=== PATIENT | male | born 1940 | race Two or more races ===

== ENCOUNTER 2022-09-29 20:25 | Inpatient (IN) | payer MEDICARE, BC ==
[~2022-09-29] VITALS: Ht 198.1 cm; Wt 127.3 kg
[2022-09-29 20:46] LABS: BASOPHILS % (AUTO) 0.7 % (0-1); EOSINOPHILS # (AUTO) 0.2 X10'3 (0-0.9); EOSINOPHILS % (AUTO) 3.7 % (0-6); HEMOGLOBIN 14.4 g/dl (14.0-17.9); LYMPHOCYTES # (AUTO) 1.7 X10'3 (1.1-4.8); LYMPHOCYTES % (AUTO) 31.4 % (21-51); MEAN CORPUSCULAR HEMOGLOBIN 31.1 PG (27.0-31.0); MEAN CORPUSCULAR HGB CONC 34.3 g/dL (33.0-36.5); MEAN CORPUSCULAR VOLUME 90.8 FL (78-98); MEAN PLATELET VOLUME 8.9 FL (7.4-10.4); MONOCYTES # (AUTO) 0.6 X10'3 (0-0.9); MONOCYTES % (AUTO) 10.5 % (2-12); NEUTROPHILS % (AUTO) 53.7 % (42-75); PLATELET COUNT 136 X10'3 (140-440); RED BLOOD COUNT 4.63 X10'6 (4.70-6.10); RED CELL DISTRIBUTION WIDTH 14.6 % (11.5-14.5); WHITE BLOOD COUNT 5.5 X10'3 (4.5-11.0)
[2022-09-29] MEDS ORDERED: temazepam 15mg capsule PO PRN (21:00)
[2022-09-29 21:07] LABS: ALANINE AMINOTRANSFERASE 26 U/L (12-78); ALBUMIN 3.8 G/DL (3.4-5.0); ALBUMIN/GLOBULIN RATIO 1.4 (1.1-1.5); ALKALINE PHOSPHATASE 107 IU/L (46-116); ANION GAP 10 (8-16); ASPARTATE AMINO TRANSFERASE 27 U/L (10-37); BILIRUBIN,TOTAL 0.5 MG/DL (0.1-1.0); BLOOD UREA NITROGEN 18 MG/DL (7-18); BUN/CREATININE RATIO 15.9 (10.0-20.0); CALCIUM 8.9 MG/DL (8.5-10.1); CHLORIDE 105 MMOL/L (99-107); CREATININE 1.13 MG/DL (0.60-1.10); GLUCOSE 113 MG/DL (70-104); MAGNESIUM 1.9 MG/DL (1.5-2.4); POTASSIUM 3.9 MMOL/L (3.5-5.1); SODIUM 141 MMOL/L (135-145); TOTAL CARBON DIOXIDE 26.5 MMOL/L (24-32); TOTAL PROTEIN 6.6 G/DL (6.4-8.2); eGFR 62 ML/MIN
[2022-09-29] MEDS ORDERED: furosemide 10 MG/1 ML 10ml inj IV ONE (22:00)
[2022-09-29] MEDS ORDERED: HYDROcodone/acetaminophen 5mg/325mg tablet PO PRN (22:40)
[2022-09-29] MEDS ORDERED: diphenhydrAMINE 25mg capsule PO PRN (22:40)
[2022-09-29] MEDS ORDERED: ondansetron 4mg rapidly disintigrating tab PO PRN (22:40)
[2022-09-29] MEDS ORDERED: acetaminophen 325mg tablet PO PRN ×2 (22:40)
[2022-09-29] MEDS ORDERED: diphenhydrAMINE 50 mg/ml inj IV PRN (22:40)
[2022-09-29] MEDS ORDERED: morphine 2 MG/ML inj. syringe IV PRN ×2 (22:40)
[2022-09-29] MEDS ORDERED: ondansetron/PF 4mg/2ml inj IV PRN (22:40)
[2022-09-29] MEDS ORDERED: HYDROcodone/acetaminophen 10/325mg tab PO PRN (22:40)
[2022-09-29] MEDS ORDERED: bisacodyl 10mg suppository rectal RC PRN (22:40)
[2022-09-29] MEDS ORDERED: normal saline 1000ml 1,000 ML IV SCH (22:40)
[2022-09-29] MEDS ORDERED: acetaminophen 650mg rectal suppository RC PRN (22:40)
[2022-09-29] MEDS ORDERED: magnesium hydroxide 30ml (MOM) UD suspension PO PRN (22:40)
[2022-09-29] MEDS ORDERED: mag hydrox/Alum hydrox/simeth 30ml oral suspension PO PRN (22:40)
[2022-09-29] MEDS ORDERED: FURO40TA4 PO (23:19)
[2022-09-29] MEDS ORDERED: DABI150C PO (23:19)
[2022-09-29] MEDS ORDERED: METO-384 PO (23:19)
[2022-09-29] MEDS ORDERED: LOSA25TA96 PO (23:19)
[2022-09-29 23:25] LABS: HEMOGLOBIN A1C 5.7 % (4.5-6.2)
[2022-09-29 23:29] LABS: CREATINE KINASE 227 U/L (39-308); LIPASE 57 U/L (73-393)
[2022-09-29 23:29] LABS: PHOSPHORUS 3.1 MG/DL (2.3-4.5)
[2022-09-29 23:32] LABS: APTT 30 SECONDS (22-32)
--- NOTE | 2022-09-29 23:55 | NUR ---
Pt placed on hospital bed for comfort.
[2022-09-30 03:48] LABS: BASOPHILS # (AUTO) 0.1 X10'3 (0-0.2); BASOPHILS % (AUTO) 0.9 % (0-1); EOSINOPHILS # (AUTO) 0.2 X10'3 (0-0.9); EOSINOPHILS % (AUTO) 3.2 % (0-6); HEMATOCRIT 40.4 % (42.0-52.0); HEMOGLOBIN 13.7 g/dl (14.0-17.9); LYMPHOCYTES # (AUTO) 1.3 X10'3 (1.1-4.8); LYMPHOCYTES % (AUTO) 23.5 % (21-51); MEAN CORPUSCULAR HEMOGLOBIN 30.9 PG (27.0-31.0); MEAN CORPUSCULAR VOLUME 90.8 FL (78-98); MEAN PLATELET VOLUME 8.8 FL (7.4-10.4); MONOCYTES # (AUTO) 0.6 X10'3 (0-0.9); MONOCYTES % (AUTO) 10.9 % (2-12); NEUTROPHILS # (AUTO) 3.4 X10'3 (1.8-7.7); NEUTROPHILS % (AUTO) 61.5 % (42-75); PLATELET COUNT 128 X10'3 (140-440); RED BLOOD COUNT 4.45 X10'6 (4.70-6.10); RED CELL DISTRIBUTION WIDTH 14.1 % (11.5-14.5); WHITE BLOOD COUNT 5.6 X10'3 (4.5-11.0)
[2022-09-30 04:00] LABS: ALANINE AMINOTRANSFERASE 21 U/L (12-78); ALBUMIN 3.5 G/DL (3.4-5.0); ALBUMIN/GLOBULIN RATIO 1.3 (1.1-1.5); ALKALINE PHOSPHATASE 77 IU/L (46-116); ANION GAP 8 (8-16); ASPARTATE AMINO TRANSFERASE 22 U/L (10-37); BILIRUBIN,TOTAL 0.6 MG/DL (0.1-1.0); BLOOD UREA NITROGEN 15 MG/DL (7-18); BUN/CREATININE RATIO 13.6 (10.0-20.0); CALCIUM 8.7 MG/DL (8.5-10.1); CHLORIDE 106 MMOL/L (99-107); CHOL/HDL RATIO 2.6 (0.00-4.99); CHOLESTEROL 184 MG/DL (0-200); GLUCOSE 118 MG/DL (70-104); HDL CHOLESTEROL 70 MG/DL (35-60); LDL CHOLESTEROL 102 MG/DL (50-100); POTASSIUM 3.7 MMOL/L (3.5-5.1); SODIUM 143 MMOL/L (135-145); TOTAL CARBON DIOXIDE 28.8 MMOL/L (24-32); TOTAL PROTEIN 6.1 G/DL (6.4-8.2); TRIGLYCERIDES 43 MG/DL (20-135); eGFR 64 ML/MIN
--- NOTE | 2022-09-30 07:21 | NUR ---
report given to Kirsten MIDDLETON
[2022-09-30] MEDS ORDERED: heparin, porcine 5000 units/ml vial SQ SCH (08:00)
[2022-09-30 08:30] VITALS: BP 123/85
[2022-09-30] MEDS: furosemide 10 MG/1 ML 10ml inj IV SCH (08:41)
[2022-09-30] MEDS: docusate sod 100mg capsule PO SCH ×2 (08:42→20:00)
[2022-09-30] MEDS: pantoprazole 40mg Tablet.DR PO SCH (08:42)
[2022-09-30] MEDS: metoprolol succinate 25mg (24-HOUR) SR. Tablet PO SCH (08:42)
[2022-09-30] MEDS: losartan 25mg tablet PO SCH (08:43)
[2022-09-30] MEDS: dabigatran 150mg capsule PO SCH ×2 (10:37→19:58)
[2022-09-30] MEDS: nitroGLYCERIN 0.1mg/hour patch TD SCH (10:38)
[2022-09-30 11:00] VITALS: BP 98/62
[2022-09-30 12:25] VITALS: BP 113/72
[2022-09-30 18:22] VITALS: BP 112/70
[2022-09-30 23:57] VITALS: BP 105/66
[2022-10-01 06:00] VITALS: BP 105/68
[2022-10-01 06:27] LABS: ALANINE AMINOTRANSFERASE 17 U/L (12-78); ALBUMIN 3.1 G/DL (3.4-5.0); ALBUMIN/GLOBULIN RATIO 1.3 (1.1-1.5); ALKALINE PHOSPHATASE 68 IU/L (46-116); ANION GAP 8 (8-16); ASPARTATE AMINO TRANSFERASE 18 U/L (10-37); BILIRUBIN,TOTAL 0.7 MG/DL (0.1-1.0); BLOOD UREA NITROGEN 18 MG/DL (7-18); CALCIUM 8.5 MG/DL (8.5-10.1); CHLORIDE 106 MMOL/L (99-107); GLUCOSE 104 MG/DL (70-104); POTASSIUM 3.6 MMOL/L (3.5-5.1); SODIUM 143 MMOL/L (135-145); TOTAL CARBON DIOXIDE 29.1 MMOL/L (24-32); TOTAL PROTEIN 5.5 G/DL (6.4-8.2); eGFR 72 ML/MIN
[2022-10-01 06:31] LABS: BASOPHILS % (AUTO) 0.8 % (0-1); EOSINOPHILS # (AUTO) 0.2 X10'3 (0-0.9); EOSINOPHILS % (AUTO) 4.5 % (0-6); HEMATOCRIT 38.8 % (42.0-52.0); HEMOGLOBIN 13.4 g/dl (14.0-17.9); LYMPHOCYTES # (AUTO) 1.3 X10'3 (1.1-4.8); LYMPHOCYTES % (AUTO) 34.5 % (21-51); MEAN CORPUSCULAR HEMOGLOBIN 31.5 PG (27.0-31.0); MEAN CORPUSCULAR HGB CONC 34.4 g/dL (33.0-36.5); MEAN CORPUSCULAR VOLUME 91.7 FL (78-98); MEAN PLATELET VOLUME 9.3 FL (7.4-10.4); MONOCYTES # (AUTO) 0.5 X10'3 (0-0.9); MONOCYTES % (AUTO) 11.9 % (2-12); NEUTROPHILS # (AUTO) 1.8 X10'3 (1.8-7.7); NEUTROPHILS % (AUTO) 48.3 % (42-75); PLATELET COUNT 114 X10'3 (140-440); RED BLOOD COUNT 4.23 X10'6 (4.70-6.10); RED CELL DISTRIBUTION WIDTH 14.6 % (11.5-14.5); WHITE BLOOD COUNT 3.8 X10'3 (4.5-11.0)
--- NOTE | 2022-10-01 06:32 | NUR ---
Problems reprioritized. Patient report given, questions answered & plan of care reviewed with Jana MIDDLETON.
[2022-10-01] MEDS: nitroGLYCERIN 0.1mg/hour patch TD SCH (08:00)
[2022-10-01] MEDS: furosemide 10 MG/1 ML 10ml inj IV SCH (08:24)
[2022-10-01] MEDS: pantoprazole 40mg Tablet.DR PO SCH (08:24)
[2022-10-01] MEDS: dabigatran 150mg capsule PO SCH (08:24)
[2022-10-01] MEDS: losartan 25mg tablet PO SCH (08:24)
[2022-10-01] MEDS: metoprolol succinate 25mg (24-HOUR) SR. Tablet PO SCH (08:25)
[2022-10-01] MEDS: docusate sod 100mg capsule PO SCH (08:25)
--- NOTE | 2022-10-01 10:52 | NUR ---
Dr. Gee at bedside.
[2022-10-01] MEDS ORDERED: LOSA50TA64 PO (10:56)
[2022-10-01] MEDS ORDERED: losartan 25mg tablet PO SCH (10:57)
[2022-10-01] MEDS ORDERED: DABI150C PO (10:59)
[2022-10-01] MEDS ORDERED: FURO40TA4 PO ×2 (10:59→11:01)
[2022-10-01] MEDS ORDERED: METO-384 PO (10:59)
[2022-10-01 11:00] VITALS: BP 91/51
--- NOTE | 2022-10-01 12:45 | NUR ---
Discharge instructions given to pt and family. all medications, diet, md appointments, etc were discussed. All questions answered. Pt and family state they understand all instructions. Pt leaving unit via wheelchair.
[2022-10-01] MEDS ORDERED: losartan 50mg tablet PO SCH (20:00)
[2022-10-01] MEDS ORDERED: dabigatran 150mg capsule PO SCH (20:00)
[2022-10-02] MEDS ORDERED: furosemide 40mg tablet PO SCH (08:00)
[2022-10-02] MEDS ORDERED: non-formulary drug (Metoprolol Succinate 1 TAB) PO SCH (08:00)
== END 2022-10-01 12:45 | disposition home or self-care (01) | DRG 291 ==
LOC: ER 20:26 → ED HOLD 22:52 → UNDOADMIN 09-30 01:24 → ED HOLD 09-30 01:24 → SUR 3N 09-30 08:28 → ED HOLD 09-30 08:28 → UNDODISIN 10-01 12:45
PROVIDERS: ADMIT Family Medicine; ATTEND Internal Medicine
DX: I13.0 Hypertensive heart and chronic kidney disease with heart failure and stage 1 through stage 4 chronic kidney disease, or unspecified chronic kidney disease (principal); I50.33 Acute on chronic diastolic (congestive) heart failure; N17.9 Acute kidney failure, unspecified; D69.6 Thrombocytopenia, unspecified; I48.91 Unspecified atrial fibrillation; N18.9 Chronic kidney disease, unspecified; Z79.01 Long term (current) use of anticoagulants; Z79.899 Other long term (current) drug therapy
CPT/HCPCS: 36415; 71045; 80053; 80061; 82550; 83036; 83690; 83735; 83880; 84100; 84443; 84484; 85025; 85379; 85610; 85730; 87081; 93005; 93306; 96374; 97116; 97161; 97530; 99285; G0378; J1940

== ENCOUNTER 2024-03-24 14:50 | Emergency (ER) | payer MEDICARE, BC ==
[~2024-03-24] VITALS: Ht 198.1 cm; Wt 121.5 kg
[~2024-03-24 14:50] MED LIST: DABI150C PO; FURO40TA4 PO; LOSA50TA64 PO; METO-384 PO
[2024-03-24 15:28] LABS: EOSINOPHILS # (AUTO) 0.4 X10'3 (0-0.9); EOSINOPHILS % (AUTO) 8.3 % (0-6); HEMATOCRIT 40.4 % (42.0-52.0); HEMOGLOBIN 13.3 g/dl (14.0-17.9); LYMPHOCYTES # (AUTO) 1.2 X10'3 (1.1-4.8); LYMPHOCYTES % (AUTO) 27.2 % (21-51); MEAN CORPUSCULAR HEMOGLOBIN 30.8 PG (27.0-31.0); MEAN CORPUSCULAR HGB CONC 32.9 g/dL (33.0-36.5); MEAN CORPUSCULAR VOLUME 93.6 FL (78-98); MEAN PLATELET VOLUME 8.3 FL (7.4-10.4); MONOCYTES # (AUTO) 0.4 X10'3 (0-0.9); MONOCYTES % (AUTO) 8.9 % (2-12); NEUTROPHILS # (AUTO) 2.5 X10'3 (1.8-7.7); NEUTROPHILS % (AUTO) 54.6 % (42-75); PLATELET COUNT 151 X10'3 (140-440); RED BLOOD COUNT 4.32 X10'6 (4.70-6.10); RED CELL DISTRIBUTION WIDTH 15.2 % (11.5-14.5); WHITE BLOOD COUNT 4.5 X10'3 (4.5-11.0)
[2024-03-24 15:47] LABS: ALANINE AMINOTRANSFERASE 21 U/L (12-78); ALBUMIN 3.6 G/DL (3.4-5.0); ALBUMIN/GLOBULIN RATIO 1.3 (1.1-1.5); ALKALINE PHOSPHATASE 73 IU/L (46-116); ANION GAP 6 (8-16); ASPARTATE AMINO TRANSFERASE 19 U/L (10-37); BILIRUBIN,TOTAL 0.5 MG/DL (0.1-1.0); BLOOD UREA NITROGEN 29 MG/DL (7-18); BUN/CREATININE RATIO 27.6 (10.0-20.0); CALCIUM 8.7 MG/DL (8.5-10.1); CHLORIDE 107 MMOL/L (99-107); CREATININE 1.05 MG/DL (0.60-1.10); GLUCOSE 91 MG/DL (70-104); SODIUM 142 MMOL/L (135-145); TOTAL CARBON DIOXIDE 29.5 MMOL/L (24-32); TOTAL PROTEIN 6.3 G/DL (6.4-8.2); eCRCL 71 ML/MIN; eGFR 68 ML/MIN
[2024-03-24 15:55] LABS: PRO BRAIN NATRIURETIC PEPTIDE 1898 PG/ML (0-450)
[2024-03-24 16:00] VITALS: BP 148/79; PULSE 70; RESP 14; O2SAT 94
[2024-03-24 16:32] VITALS: TEMP 98
== END 2024-03-24 17:09 | disposition home or self-care (01) ==
LOC: ER 14:51
DX: R79.89 Other specified abnormal findings of blood chemistry (principal); R53.1 Weakness; R19.7 Diarrhea, unspecified; Z79.899 Other long term (current) drug therapy
CPT/HCPCS: 36415; 71045; 80053; 83880; 84484; 85025; 93005; 99285

== ENCOUNTER 2024-07-21 15:39 | Inpatient (IN) | payer MEDICARE, BC ==
[~2024-07-21] VITALS: Ht 198.1 cm; Wt 114.5 kg
[2024-07-21] MEDS: acetaminophen 325mg tablet PO ONE (16:53)
[2024-07-21 17:17] LABS: BASOPHILS % (AUTO) 0.3 % (0-1); EOSINOPHILS % (AUTO) 0 % (0-6); HEMATOCRIT 39.3 % (42.0-52.0); HEMOGLOBIN 13.3 g/dl (14.0-17.9); LYMPHOCYTES # (AUTO) 0.5 X10'3 (1.1-4.8); LYMPHOCYTES % (AUTO) 5.9 % (21-51); MEAN CORPUSCULAR HEMOGLOBIN 31.3 PG (27.0-31.0); MEAN CORPUSCULAR HGB CONC 33.7 g/dL (33.0-36.5); MEAN CORPUSCULAR VOLUME 92.9 FL (78-98); MEAN PLATELET VOLUME 8.6 FL (7.4-10.4); MONOCYTES # (AUTO) 0.7 X10'3 (0-0.9); MONOCYTES % (AUTO) 8.2 % (2-12); NEUTROPHILS # (AUTO) 6.9 X10'3 (1.8-7.7); NEUTROPHILS % (AUTO) 85.6 % (42-75); PLATELET COUNT 122 X10'3 (140-440); RED BLOOD COUNT 4.24 X10'6 (4.70-6.10); RED CELL DISTRIBUTION WIDTH 13.5 % (11.5-14.5); WHITE BLOOD COUNT 8.1 X10'3 (4.5-11.0)
[2024-07-21] MEDS ORDERED: DABI150C PO (17:23)
[2024-07-21 17:26] LABS: BILIRUBIN,URINE NEGATIVE (Neg); CLARITY,URINE CLEAR (Clear); COLOR,URINE YELLOW (Yellow); GLUCOSE, URINE NEGATIVE (Neg); KETONES,URINE NEGATIVE (Neg); LEUKOCYTE ESTERASE ,URINE NEGATIVE (Neg); NITRITES, URINE NEGATIVE (Neg); OCCULT BLOOD,URINE MODERATE (Neg); PH,URINE 5.5 (4.8-8.0); PROTEIN,URINE TRACE mg/dl (Neg); UROBILINOGEN,URINE 0.2 E.U/dL (0.2-1.0)
[2024-07-21 17:28] LABS: UA COLLECTION TYPE VOIDED
[2024-07-21 17:34] LABS: BACTERIA,URINE FEW /HPF (Neg); RBC,URINE 0-2 /HPF (0-2); SQUAMOUS EPITHELIAL CELL,UR NONE SEEN /LPF (FEW); WBC,URINE 0-4 /HPF (0-4)
[2024-07-21 17:44] LABS: ALANINE AMINOTRANSFERASE 26 U/L (12-78); ALBUMIN 3.3 G/DL (3.4-5.0); ALBUMIN/GLOBULIN RATIO 1.1 (1.1-1.5); ANION GAP 7 (8-16); ASPARTATE AMINO TRANSFERASE 32 U/L (10-37); BILIRUBIN,TOTAL 1.1 MG/DL (0.1-1.0); BLOOD UREA NITROGEN 22 MG/DL (7-18); BUN/CREATININE RATIO 18.2 (10.0-20.0); CALCIUM 8.4 MG/DL (8.5-10.1); CHLORIDE 100 MMOL/L (99-107); CREATININE 1.21 MG/DL (0.60-1.10); POTASSIUM 3.4 MMOL/L (3.5-5.1); SODIUM 135 MMOL/L (135-145); TOTAL CARBON DIOXIDE 27.6 MMOL/L (24-32); TOTAL PROTEIN 6.4 G/DL (6.4-8.2); eCRCL 61 ML/MIN; eGFR 57 ML/MIN
[2024-07-21 17:48] LABS: ALKALINE PHOSPHATASE 66 IU/L (46-116); GLUCOSE 135 MG/DL (70-104)
[2024-07-21] MEDS ORDERED: VANCOMYCIN 1GM 200ML H20 (PEG) 200 ML IV ONE (19:15)
[2024-07-21] MEDS: CefTRIAXone/D5W-Rocephin 1gm 50 ML IV ONE (19:56)
[2024-07-21] MEDS: vancomycin/NS 1 GM ADD-VANTAGE 250 ML IV ONE (19:56)
[2024-07-21] MEDS: normal saline 1000ml 1,000 ML IV ONE (19:56)
[2024-07-21] MEDS ORDERED: potassium Cl 40MEQ/1/2NS 520ml 520 ML IV PRN (20:50)
[2024-07-21] MEDS ORDERED: magnesium sulf-water 2g/50mL 50 ML IV PRN (20:50)
[2024-07-21] MEDS ORDERED: magnesium sulf-water 4G/100mL 100 ML IV PRN (20:50)
[2024-07-21] MEDS ORDERED: magnesium Cl slow-release 64mg tablet PO PRN (20:50)
[2024-07-21] MEDS ORDERED: potassium Cl 20 mEq SR tablet PO PRN (20:50)
[2024-07-21] MEDS ORDERED: ondansetron/PF 4mg/2ml inj IV PRN (20:50)
[2024-07-21] MEDS ORDERED: morphine 2 MG/ML inj. syringe IV PRN (20:50)
[2024-07-21] MEDS ORDERED: mag hydrox/Alum hydrox/simeth 30ml oral suspension PO PRN (20:50)
[2024-07-21] MEDS ORDERED: magnesium hydroxide 30ml (MOM) UD suspension PO PRN (20:50)
[2024-07-21 21:36] LABS: BILIRUBIN,URINE NEGATIVE (Neg); CLARITY,URINE CLEAR (Clear); COLOR,URINE YELLOW (Yellow); GLUCOSE, URINE NEGATIVE (Neg); KETONES,URINE NEGATIVE (Neg); LEUKOCYTE ESTERASE ,URINE NEGATIVE (Neg); NITRITES, URINE NEGATIVE (Neg); OCCULT BLOOD,URINE MODERATE (Neg); PROTEIN,URINE NEGATIVE (Neg); UROBILINOGEN,URINE 0.2 E.U/dL (0.2-1.0)
[2024-07-21 21:47] LABS: UA COLLECTION TYPE CLN CATCH MIDSTREAM
[2024-07-21 21:48] LABS: BACTERIA,URINE FEW /HPF (Neg); RBC,URINE 0-2 /HPF (0-2); SQUAMOUS EPITHELIAL CELL,UR FEW /LPF (FEW); WBC,URINE 0-4 /HPF (0-4)
[2024-07-21] MEDS: potassium Cl 20 mEq SR tablet PO PRN (21:56)
[2024-07-21 22:08] LABS: PRO BRAIN NATRIURETIC PEPTIDE 2292 PG/ML (0-450)
[2024-07-21 22:45] VITALS: BP 121/70; PULSE 106; RESP 18; TEMP 100.2; O2SAT 96
[2024-07-21 23:10] VITALS: RESP 18; O2SAT 96
[2024-07-22] VITALS (10 sets, daily range): BP systolic 99–138; BP diastolic 50–113; PULSE 94–114; RESP 14–19; TEMP 97.1–101.1; O2SAT 95–99
[2024-07-22] MEDS: normal saline 1000ml 1,000 ML IV SCH (04:17)
[2024-07-22] MEDS: furosemide 10 MG/1 ML 10ml inj IV SCH (04:21)
[2024-07-22 06:58] LABS: BASOPHILS % (AUTO) 0.2 % (0-1); EOSINOPHILS % (AUTO) 0 % (0-6); HEMOGLOBIN 11.9 g/dl (14.0-17.9); LYMPHOCYTES % (AUTO) 13.2 % (21-51); MEAN CORPUSCULAR HEMOGLOBIN 32.1 PG (27.0-31.0); MEAN CORPUSCULAR HGB CONC 34.9 g/dL (33.0-36.5); MEAN CORPUSCULAR VOLUME 91.9 FL (78-98); MEAN PLATELET VOLUME 8.9 FL (7.4-10.4); MONOCYTES % (AUTO) 13.1 % (2-12); NEUTROPHILS # (AUTO) 5.8 X10'3 (1.8-7.7); NEUTROPHILS % (AUTO) 73.5 % (42-75); PLATELET COUNT 108 X10'3 (140-440); RED CELL DISTRIBUTION WIDTH 13.6 % (11.5-14.5); WHITE BLOOD COUNT 7.9 X10'3 (4.5-11.0)
[2024-07-22 07:51] LABS: OSMOLALITY 282 MOSM/K (280-300)
[2024-07-22 07:52] LABS: ALANINE AMINOTRANSFERASE 22 U/L (12-78); ALBUMIN 2.7 G/DL (3.4-5.0); ALBUMIN/GLOBULIN RATIO 0.9 (1.1-1.5); ALKALINE PHOSPHATASE 57 IU/L (46-116); ANION GAP 9 (8-16); ASPARTATE AMINO TRANSFERASE 36 U/L (10-37); BILIRUBIN,TOTAL 1.3 MG/DL (0.1-1.0); BLOOD UREA NITROGEN 19 MG/DL (7-18); BUN/CREATININE RATIO 16.4 (10.0-20.0); CALCIUM 7.6 MG/DL (8.5-10.1); CHLORIDE 101 MMOL/L (99-107); CHOL/HDL RATIO 2.1 (0.00-4.99); CHOLESTEROL 115 MG/DL (0-200); CREATININE 1.16 MG/DL (0.60-1.10); GLUCOSE 119 MG/DL (70-104); HDL CHOLESTEROL 55 MG/DL (35-60); LDL CHOLESTEROL 56 MG/DL (50-100); MAGNESIUM 1.6 MG/DL (1.5-2.4); POTASSIUM 3.6 MMOL/L (3.5-5.1); SODIUM 135 MMOL/L (135-145); TOTAL CARBON DIOXIDE 24.8 MMOL/L (24-32); TOTAL PROTEIN 5.6 G/DL (6.4-8.2); TRIGLYCERIDES 43 MG/DL (20-135); eCRCL 80 ML/MIN; eGFR 60 ML/MIN
[2024-07-22] MEDS: K and/or MAG REPLACEMENT MC SCH (08:00)
[2024-07-22] MEDS: metoprolol succinate 25mg (24-HOUR) SR. Tablet PO SCH (09:50)
[2024-07-22] MEDS: furosemide 40mg/4ml inj IV SCH (09:50)
[2024-07-22] MEDS: acetaminophen 325mg tablet PO PRN (09:50)
[2024-07-22] MEDS: docusate sod 100mg capsule PO SCH (09:51)
[2024-07-22] MEDS: piperacillin/tazo 4.5gm/100ml 100 ML IV SCH (09:51)
[2024-07-22] MEDS: dabigatran 150mg capsule PO SCH (09:51)
[2024-07-22] MEDS: losartan 50mg tablet PO SCH (09:51)
[2024-07-23] VITALS (7 sets, daily range): BP systolic 94–131; BP diastolic 46–75; PULSE 84–116; RESP 10–23; TEMP 97.3–99.2; O2SAT 91–97
[2024-07-23 06:42] LABS: BASOPHILS % (AUTO) 0.1 % (0-1); EOSINOPHILS % (AUTO) 0.2 % (0-6); HEMOGLOBIN 10.8 g/dl (14.0-17.9); LYMPHOCYTES % (AUTO) 13.1 % (21-51); MEAN CORPUSCULAR HEMOGLOBIN 31.9 PG (27.0-31.0); MEAN CORPUSCULAR HGB CONC 34.8 g/dL (33.0-36.5); MEAN CORPUSCULAR VOLUME 91.7 FL (78-98); MEAN PLATELET VOLUME 8.9 FL (7.4-10.4); MONOCYTES # (AUTO) 0.9 X10'3 (0-0.9); MONOCYTES % (AUTO) 11.6 % (2-12); NEUTROPHILS # (AUTO) 5.8 X10'3 (1.8-7.7); PLATELET COUNT 92 X10'3 (140-440); RED BLOOD COUNT 3.38 X10'6 (4.70-6.10); RED CELL DISTRIBUTION WIDTH 13.8 % (11.5-14.5); WHITE BLOOD COUNT 7.8 X10'3 (4.5-11.0)
[2024-07-23 06:58] LABS: ALANINE AMINOTRANSFERASE 24 U/L (12-78); ALBUMIN 2.2 G/DL (3.4-5.0); ALBUMIN/GLOBULIN RATIO 0.7 (1.1-1.5); ALKALINE PHOSPHATASE 49 IU/L (46-116); ANION GAP 8 (8-16); ASPARTATE AMINO TRANSFERASE 30 U/L (10-37); BILIRUBIN,TOTAL 1.6 MG/DL (0.1-1.0); BLOOD UREA NITROGEN 27 MG/DL (7-18); CALCIUM 7.2 MG/DL (8.5-10.1); CHLORIDE 100 MMOL/L (99-107); CREATININE 1.42 MG/DL (0.60-1.10); GLUCOSE 129 MG/DL (70-104); MAGNESIUM 3.5 MG/DL (1.5-2.4); POTASSIUM 3.3 MMOL/L (3.5-5.1); SODIUM 132 MMOL/L (135-145); TOTAL CARBON DIOXIDE 24.2 MMOL/L (24-32); TOTAL PROTEIN 5.2 G/DL (6.4-8.2); eCRCL 52 ML/MIN; eGFR 48 ML/MIN
[2024-07-23] MEDS: HYDROmorphone/PF 0.2 MG/ML SYRINGE IV PRN (08:20)
[2024-07-23] MEDS ORDERED: HYDROmorphone inj. 0.5 MG/0.5 ML DISP.SYRIN IV PRN (16:45)
[2024-07-23] MEDS: furosemide 20 MG/2 ML vial IV SCH (19:49)
[2024-07-23] MEDS: HYDROcodone/acetaminophen 5mg/325mg tablet PO PRN (19:58)
[2024-07-24] VITALS (8 sets, daily range): BP systolic 94–133; BP diastolic 59–75; PULSE 75–98; RESP 15–20; TEMP 97.4–98.9; O2SAT 90–98
[2024-07-24 06:37] LABS: ALANINE AMINOTRANSFERASE 21 U/L (12-78); ALBUMIN 2.1 G/DL (3.4-5.0); ALBUMIN/GLOBULIN RATIO 0.7 (1.1-1.5); ALKALINE PHOSPHATASE 50 IU/L (46-116); ANION GAP 8 (8-16); ASPARTATE AMINO TRANSFERASE 26 U/L (10-37); BILIRUBIN,TOTAL 1.2 MG/DL (0.1-1.0); BLOOD UREA NITROGEN 27 MG/DL (7-18); BUN/CREATININE RATIO 20.3 (10.0-20.0); CALCIUM 7.7 MG/DL (8.5-10.1); CHLORIDE 100 MMOL/L (99-107); CREATININE 1.33 MG/DL (0.60-1.10); GLUCOSE 112 MG/DL (70-104); MAGNESIUM 1.9 MG/DL (1.5-2.4); POTASSIUM 3.9 MMOL/L (3.5-5.1); SODIUM 133 MMOL/L (135-145); TOTAL CARBON DIOXIDE 25.1 MMOL/L (24-32); TOTAL PROTEIN 5.3 G/DL (6.4-8.2); eCRCL 55 ML/MIN; eGFR 51 ML/MIN
[2024-07-24 07:10] LABS: BASOPHILS % (AUTO) 0.2 % (0-1); EOSINOPHILS # (AUTO) 0.1 X10'3 (0-0.9); EOSINOPHILS % (AUTO) 0.9 % (0-6); HEMATOCRIT 30.7 % (42.0-52.0); HEMOGLOBIN 10.4 g/dl (14.0-17.9); LYMPHOCYTES # (AUTO) 0.8 X10'3 (1.1-4.8); LYMPHOCYTES % (AUTO) 10.3 % (21-51); MEAN CORPUSCULAR HEMOGLOBIN 31.4 PG (27.0-31.0); MEAN CORPUSCULAR VOLUME 92.5 FL (78-98); MEAN PLATELET VOLUME 9.4 FL (7.4-10.4); MONOCYTES # (AUTO) 0.9 X10'3 (0-0.9); MONOCYTES % (AUTO) 12.4 % (2-12); NEUTROPHILS # (AUTO) 5.8 X10'3 (1.8-7.7); NEUTROPHILS % (AUTO) 76.2 % (42-75); PLATELET COUNT 111 X10'3 (140-440); RED BLOOD COUNT 3.32 X10'6 (4.70-6.10); RED CELL DISTRIBUTION WIDTH 13.4 % (11.5-14.5); WHITE BLOOD COUNT 7.5 X10'3 (4.5-11.0)
[2024-07-25] VITALS (8 sets, daily range): BP systolic 100–120; BP diastolic 62–76; PULSE 86–102; RESP 13–18; TEMP 97.6–102.2; O2SAT 96–100
[2024-07-25 06:32] LABS: BASOPHILS % (AUTO) 0.4 % (0-1); EOSINOPHILS # (AUTO) 0.1 X10'3 (0-0.9); EOSINOPHILS % (AUTO) 2.3 % (0-6); HEMATOCRIT 30.4 % (42.0-52.0); HEMOGLOBIN 10.6 g/dl (14.0-17.9); LYMPHOCYTES # (AUTO) 0.8 X10'3 (1.1-4.8); LYMPHOCYTES % (AUTO) 12.5 % (21-51); MEAN CORPUSCULAR HEMOGLOBIN 31.6 PG (27.0-31.0); MEAN CORPUSCULAR HGB CONC 34.7 g/dL (33.0-36.5); MEAN CORPUSCULAR VOLUME 91.2 FL (78-98); MEAN PLATELET VOLUME 9.3 FL (7.4-10.4); MONOCYTES # (AUTO) 0.9 X10'3 (0-0.9); MONOCYTES % (AUTO) 14.1 % (2-12); NEUTROPHILS # (AUTO) 4.6 X10'3 (1.8-7.7); NEUTROPHILS % (AUTO) 70.7 % (42-75); PLATELET COUNT 132 X10'3 (140-440); RED BLOOD COUNT 3.34 X10'6 (4.70-6.10); RED CELL DISTRIBUTION WIDTH 13.5 % (11.5-14.5); WHITE BLOOD COUNT 6.5 X10'3 (4.5-11.0)
[2024-07-25 06:47] LABS: ALANINE AMINOTRANSFERASE 28 U/L (12-78); ALBUMIN 2.1 G/DL (3.4-5.0); ALBUMIN/GLOBULIN RATIO 0.6 (1.1-1.5); ALKALINE PHOSPHATASE 57 IU/L (46-116); ANION GAP 10 (8-16); ASPARTATE AMINO TRANSFERASE 18 U/L (10-37); BILIRUBIN,TOTAL 0.8 MG/DL (0.1-1.0); BLOOD UREA NITROGEN 33 MG/DL (7-18); CHLORIDE 99 MMOL/L (99-107); GLUCOSE 120 MG/DL (70-104); POTASSIUM 3.8 MMOL/L (3.5-5.1); SODIUM 134 MMOL/L (135-145); TOTAL CARBON DIOXIDE 24.9 MMOL/L (24-32); TOTAL PROTEIN 5.6 G/DL (6.4-8.2); eCRCL 49 ML/MIN; eGFR 45 ML/MIN
[2024-07-25 07:43] LABS: % IRON SATURATION 6 % (11-46); IRON 7 UG/DL (53-167); TOTAL IRON BINDING CAPACITY 127 UG/DL (259-388)
[2024-07-25 13:00] LABS: GLUCOSE,SYNOVIAL FLUID 2 MG/DL; TOTAL PROTEIN,SYNOVIAL FLUID 3.7 GM/DL
[2024-07-25 13:02] LABS: APPEARANCE,SYNOVIAL FLUID CLOUDY; COLOR,SYNOVIAL FLUID OTHER; SYN RBC 9000 /CU MM (0); SYN WBC 41000 /CU MM (0-200)
[2024-07-25 13:16] LABS: BASOPHILS % (AUTO) 0.5 % (0-1); EOSINOPHILS # (AUTO) 0.2 X10'3 (0-0.9); EOSINOPHILS % (AUTO) 3.1 % (0-6); HEMATOCRIT 31.6 % (42.0-52.0); HEMOGLOBIN 10.8 g/dl (14.0-17.9); LYMPHOCYTES # (AUTO) 0.6 X10'3 (1.1-4.8); LYMPHOCYTES % (AUTO) 8.8 % (21-51); MEAN CORPUSCULAR HEMOGLOBIN 31.4 PG (27.0-31.0); MEAN CORPUSCULAR HGB CONC 34.3 g/dL (33.0-36.5); MEAN CORPUSCULAR VOLUME 91.6 FL (78-98); MONOCYTES # (AUTO) 0.9 X10'3 (0-0.9); MONOCYTES % (AUTO) 13.8 % (2-12); NEUTROPHILS # (AUTO) 4.8 X10'3 (1.8-7.7); NEUTROPHILS % (AUTO) 73.8 % (42-75); PLATELET COUNT 161 X10'3 (140-440); RED BLOOD COUNT 3.46 X10'6 (4.70-6.10); RED CELL DISTRIBUTION WIDTH 13.6 % (11.5-14.5); WHITE BLOOD COUNT 6.5 X10'3 (4.5-11.0)
[2024-07-25] MEDS ORDERED: ringers solution, lacted 1,000 ML IV ONE ×2 (15:05→18:25)
[2024-07-25] MEDS ORDERED: BUPIVAcaine 2.5mg/ml inj 50ml vial (contains preservative) ONE (16:08)
[2024-07-25] MEDS: ferrous sulfate 325mg tablet PO SCH (16:29)
[2024-07-25] MEDS: hydrocortisone 1% cream 28gm TP SCH (20:33)
[2024-07-26] VITALS (19 sets, daily range): BP systolic 95–138; BP diastolic 43–80; PULSE 64–104; RESP 13–20; TEMP 97.3–98.1; O2SAT 90–99
[2024-07-26] MEDS: loperamide 2mg capsule PO ONE (01:03)
[2024-07-26] MEDS: ringers solution, lacted 1,000 ML IV SCH ×2 (06:07→11:04)
[2024-07-26 06:13] LABS: BASOPHILS % (AUTO) 0.3 % (0-1); EOSINOPHILS # (AUTO) 0.3 X10'3 (0-0.9); EOSINOPHILS % (AUTO) 5.4 % (0-6); HEMATOCRIT 31.3 % (42.0-52.0); HEMOGLOBIN 10.8 g/dl (14.0-17.9); LYMPHOCYTES # (AUTO) 0.6 X10'3 (1.1-4.8); LYMPHOCYTES % (AUTO) 10.2 % (21-51); MEAN CORPUSCULAR HEMOGLOBIN 31.6 PG (27.0-31.0); MEAN CORPUSCULAR HGB CONC 34.5 g/dL (33.0-36.5); MEAN CORPUSCULAR VOLUME 91.7 FL (78-98); MEAN PLATELET VOLUME 8.5 FL (7.4-10.4); MONOCYTES # (AUTO) 0.8 X10'3 (0-0.9); MONOCYTES % (AUTO) 12.9 % (2-12); NEUTROPHILS # (AUTO) 4.2 X10'3 (1.8-7.7); NEUTROPHILS % (AUTO) 71.2 % (42-75); PLATELET COUNT 203 X10'3 (140-440); RED BLOOD COUNT 3.41 X10'6 (4.70-6.10); RED CELL DISTRIBUTION WIDTH 13.5 % (11.5-14.5)
[2024-07-26 06:25] LABS: APTT 31 SECONDS (22-32); INR 1.2 INR; PROTHROMBIN TIME 12.3 SECONDS (9.0-12.0)
[2024-07-26 06:34] LABS: ALANINE AMINOTRANSFERASE 26 U/L (12-78); ALBUMIN 2.1 G/DL (3.4-5.0); ALBUMIN/GLOBULIN RATIO 0.6 (1.1-1.5); ALKALINE PHOSPHATASE 71 IU/L (46-116); ANION GAP 6 (8-16); ASPARTATE AMINO TRANSFERASE 16 U/L (10-37); BILIRUBIN,TOTAL 0.8 MG/DL (0.1-1.0); BLOOD UREA NITROGEN 30 MG/DL (7-18); BUN/CREATININE RATIO 24.6 (10.0-20.0); CALCIUM 8.4 MG/DL (8.5-10.1); CHLORIDE 100 MMOL/L (99-107); CREATININE 1.22 MG/DL (0.60-1.10); GLUCOSE 112 MG/DL (70-104); POTASSIUM 3.8 MMOL/L (3.5-5.1); SODIUM 134 MMOL/L (135-145); TOTAL CARBON DIOXIDE 27.6 MMOL/L (24-32); TOTAL PROTEIN 5.9 G/DL (6.4-8.2); eCRCL 60 ML/MIN; eGFR 57 ML/MIN
[2024-07-26] MEDS ORDERED: vancomycin 1,000mg inj ONE ×2 (07:13→08:43)
[2024-07-26] MEDS ORDERED: BUPIVACAINE/MELOXICAM 14 ML VIAL IL ONE (07:13)
[2024-07-26] MEDS ORDERED: furosemide 20 MG/2 ML vial IV SCH (08:00)
[2024-07-26] MEDS ORDERED: morphine 4 MG/ML inj SYRINge IV PRN (08:25)
[2024-07-26] MEDS ORDERED: sevoflurane 250ml liquid IH ONE (08:25)
[2024-07-26] MEDS ORDERED: enalaprilat dihydrate 2.5mg/2ml vial IV PRN (08:25)
[2024-07-26] MEDS ORDERED: ondansetron/PF 4mg/2ml inj IV PRN (08:25)
[2024-07-26] MEDS ORDERED: meperidine/PF 25mg/ml syringe IV PRN ×3 (08:25)
[2024-07-26] MEDS ORDERED: morphine 2 MG/ML inj. syringe IV PRN (08:25)
[2024-07-26] MEDS ORDERED: labetalol 20mg/4ml (5mg/ml) syringe IV PRN (08:25)
[2024-07-26] MEDS ORDERED: proCHLORperazine 10 MG/2 ml inj IV PRN (08:25)
[2024-07-26] MEDS ORDERED: fentaNYL/PF 50MCG/1 ML 2ML syringe ONE (08:33)
[2024-07-26] MEDS ORDERED: midazolam 1 mg/ML 2ml injection ONE (08:34)
[2024-07-26] MEDS ORDERED: tobramycin 40mg/ml inj ONE (08:35)
[2024-07-26] MEDS ORDERED: gentamicin 40 MG/1 ML inj ONE (08:35)
[2024-07-26] MEDS ORDERED: tobramycin sulfate 1.2gm vial ONE (08:35)
[2024-07-26] MEDS ORDERED: propofol inj 20 ML IV ONE (08:42)
[2024-07-26] MEDS ORDERED: ROPIVAcaine 0.5% (5mg/ml) 30ml vial ONE (09:00)
[2024-07-26] MEDS ORDERED: LIDOcaine 2% (20mg/ml) 5ml vial ONE (09:00)
[2024-07-26] MEDS ORDERED: dexamethasone sod phosphate 4mg/ml inj. ONE (10:25)
[2024-07-26] MEDS: lactose-reduced food (Ensure Enlive) - 237ml bottle PO SCH (13:05)
[2024-07-27] VITALS (9 sets, daily range): BP systolic 99–121; BP diastolic 51–66; PULSE 81–113; RESP 16–21; TEMP 97.4–98.3; O2SAT 97–99
[2024-07-27] MEDS: furosemide 20 MG/2 ML vial IV SCH (09:17)
[2024-07-27] MEDS: HYDROmorphone/PF 0.2 MG/ML SYRINGE IV PRN (10:37)
[2024-07-27] MEDS: piperacillin/tazo 3.375gm/50ml 50 ML IV SCH (16:10)
[2024-07-28 02:00] VITALS: BP 121/61; PULSE 88; RESP 16; TEMP 98; O2SAT 98
[2024-07-28] MEDS: ampicillin/sulbac 3gm/NS 100ml 100 ML IV SCH (04:29)
[2024-07-28 07:00] VITALS: BP 123/77; PULSE 88; RESP 16; TEMP 97.4; O2SAT 96
[2024-07-28 08:00] VITALS: RESP 18; O2SAT 98
[2024-07-28 08:28] LABS: BASOPHILS % (AUTO) 0.5 % (0-1); EOSINOPHILS # (AUTO) 0.2 X10'3 (0-0.9); EOSINOPHILS % (AUTO) 3.9 % (0-6); HEMATOCRIT 29.4 % (42.0-52.0); HEMOGLOBIN 10.1 g/dl (14.0-17.9); LYMPHOCYTES % (AUTO) 16.6 % (21-51); MEAN CORPUSCULAR HEMOGLOBIN 31.5 PG (27.0-31.0); MEAN CORPUSCULAR HGB CONC 34.4 g/dL (33.0-36.5); MEAN CORPUSCULAR VOLUME 91.5 FL (78-98); MEAN PLATELET VOLUME 8.5 FL (7.4-10.4); MONOCYTES # (AUTO) 0.7 X10'3 (0-0.9); MONOCYTES % (AUTO) 11.1 % (2-12); NEUTROPHILS # (AUTO) 4.1 X10'3 (1.8-7.7); NEUTROPHILS % (AUTO) 67.9 % (42-75); PLATELET COUNT 306 X10'3 (140-440); RED BLOOD COUNT 3.21 X10'6 (4.70-6.10); RED CELL DISTRIBUTION WIDTH 13.7 % (11.5-14.5); WHITE BLOOD COUNT 6.1 X10'3 (4.5-11.0)
[2024-07-28 08:30] LABS: ALANINE AMINOTRANSFERASE 26 U/L (12-78); ALBUMIN 1.8 G/DL (3.4-5.0); ALBUMIN/GLOBULIN RATIO 0.5 (1.1-1.5); ALKALINE PHOSPHATASE 66 IU/L (46-116); ASPARTATE AMINO TRANSFERASE 16 U/L (10-37); BILIRUBIN,TOTAL 0.4 MG/DL (0.1-1.0); CALCIUM 9.1 MG/DL (8.5-10.1); TOTAL CARBON DIOXIDE 29.6 MMOL/L (24-32); TOTAL PROTEIN 5.4 G/DL (6.4-8.2)
[2024-07-28 08:31] LABS: ANION GAP 3 (8-16); BLOOD UREA NITROGEN 37 MG/DL (7-18); BUN/CREATININE RATIO 33.9 (10.0-20.0); CHLORIDE 102 MMOL/L (99-107); CREATININE 1.09 MG/DL (0.60-1.10); GLUCOSE 108 MG/DL (70-104); POTASSIUM 4.3 MMOL/L (3.5-5.1); SODIUM 135 MMOL/L (135-145); eCRCL 68 ML/MIN; eGFR 65 ML/MIN
[2024-07-28] MEDS: docusate sod 100mg capsule PO PRN (10:12)
[2024-07-28 11:00] VITALS: BP 117/60; PULSE 68; RESP 16; TEMP 98.1; O2SAT 98
[2024-07-28] MEDS: ampicillin inj 2 GM in normal saline 100ml IV soln 100 ML IV SCH (12:00)
[2024-07-28 15:00] VITALS: BP 121/80; PULSE 88; RESP 16; TEMP 97.7; O2SAT 98
[2024-07-28 15:20] VITALS: RESP 16
== END 2024-07-28 15:45 | DRG 485 ==
LOC: ER 15:40 → ED HOLD 20:55 → PCU 3S 22:12
PROVIDERS: ADMIT Surgery; ATTEND Family Medicine
PROC: 3E0U029 Introduction of Other Anti-infective into Joints, Open Approach (ICD-10-PCS; 2024-07-26)
PROC: 0SBD0ZZ Excision of Left Knee Joint, Open Approach (ICD-10-PCS; 2024-07-26)
PROC: 3E0T3BZ Introduction of Anesthetic Agent into Peripheral Nerves and Plexi, Percutaneous Approach (ICD-10-PCS; 2024-07-26)
PROC: 3E0T33Z Introduction of Anti-inflammatory into Peripheral Nerves and Plexi, Percutaneous Approach (ICD-10-PCS; 2024-07-26)
PROC: 0S9D00Z Drainage of Left Knee Joint with Drainage Device, Open Approach (ICD-10-PCS; principal; 2024-07-26 08:25)
DX: T84.54XA Infection and inflammatory reaction due to internal left knee prosthesis, initial encounter (principal); A41.81 Sepsis due to Enterococcus; I50.33 Acute on chronic diastolic (congestive) heart failure; N17.0 Acute kidney failure with tubular necrosis; L03.115 Cellulitis of right lower limb; I13.0 Hypertensive heart and chronic kidney disease with heart failure and stage 1 through stage 4 chronic kidney disease, or unspecified chronic kidney disease; M00.862 Arthritis due to other bacteria, left knee; I48.91 Unspecified atrial fibrillation; N18.9 Chronic kidney disease, unspecified; Z96.652 Presence of left artificial knee joint; M25.462 Effusion, left knee; D50.9 Iron deficiency anemia, unspecified; Y83.8 Other surgical procedures as the cause of abnormal reaction of the patient, or of later complication, without mention of misadventure at the time of the procedure; Z82.49 Family history of ischemic heart disease and other diseases of the circulatory system; Y92.89 Other specified places as the place of occurrence of the external cause
CPT/HCPCS: 36415; 71045; 73700; 80053; 80061; 81001; 82945; 83540; 83550; 83605; 83735; 83880; 83930; 84145; 84157; 84484; 85025; 85610; 85730; 87040; 87070; 87075; 87077; 87081; 87186; 89051; 93005; 93306; 93970; 96365; 96368; 97110; 97161; 97530; 97535; 99285; A4215; A4618; A4649; A6212; A6213; A6250; A6253; A6260; A6446; A6449; A6454; A7000; C1713; C9088; C9250; G0378; J0290; J0295; J0696; J1100; J1171; J1580; J1940; J2003; J2250; J2405; J2543; J2704; J2795; J3010; J3260; J3370; J3490; J7030; J7040; J7120